=== PATIENT | male | born 1960 | race Caucasian/White ===

== ENCOUNTER 2021-01-19 11:43 | Emergency (ER) | payer OTHER, SELFPAY ==
--- NOTE | 2021-01-19 12:00 | DI.RAD_ITS ---
Exam(s) XR KNEE LT 4V AP,LAT,PRATIBHA,PAT EXAM: XR KNEE LT 4V AP,LAT,PRATIBHA,PAT CLINICAL HISTORY: trauma. TECHNIQUE: 2D digital imaging was performed. COMPARISON: No exams were available for comparison FINDINGS: BONES: There is a fracture extending transversely through the lower pole of the patella. An additio nal oblique fracture is seen extending from the lateral tibial plateau medially to the medial proxima l tibial metaphysis. Minimal separation at the articular surface. Proximal fibula appears intact.. No bony destructive lesion is seen. JOINTS: The knee is normally aligned. Large hemarthrosis. Chondrocalcinosis of the menisci. Mild degenerative changes. SOFT TISSUE: Normal. IMPRESSION: Fractures of the patella and proximal tibia. DATA REPOSITORY: RADIATION DOSE DELIVERED:
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
[2021-01-19 12:02] VITALS: BP 131/76; PULSE 63; RESP 16; TEMP 36.6; O2SAT 99
--- NOTE | 2021-01-19 13:42 | DI.VRAD_ITS ---
PROCEDURE INFORMATION: Exam: XR Left Knee Exam date and time: 01/19/2021 12:11 PM Age: 60 years old Clinical indication: Other: Trauma TECHNIQUE: Imaging protocol: XR Left knee. Views: 4 or more views. COMPARISON: No relevant prior studies available. FINDINGS: Bones/joints: There is no bleak fracture through the proximal tibia extending from the lateral tibial plateau through the medial aspect of the tibial metaphysis. There is about 2 mm of displacement. There is also a transverse fracture through the lower portion of the patella with about 2 mm of distraction. Soft tissues: There is a large joint effusion with a fat fluid level in the suprapatellar bursa. IMPRESSION: Mildly displaced oblique fracture of the tibial plateau and mildly distracted fractures of the patella. Dictated and Authenticated by: Lopez Jacobs MD. Ordering:MAI Carpio MD
== END 2021-01-19 14:09 | disposition home or self-care (01) ==
PROVIDERS: Emergency Provider Physician Assistant
DX: S82.292A Other fracture of shaft of left tibia, initial encounter for closed fracture (principal); S82.092A Other fracture of left patella, initial encounter for closed fracture; V18.4XXA Pedal cycle driver injured in noncollision transport accident in traffic accident, initial encounter
CPT/HCPCS: 29505; 99283; 73564